=== PATIENT | female | born 1960 | race Caucasian/White ===

== ENCOUNTER 2018-01-30 09:31 | Emergency (ER) | payer BC ==
[~2018-01-30] VITALS: Ht 168.9 cm; Wt 83.6 kg
[~2018-01-30 09:31] MED LIST: ARMO60TA PO; CHEL50TA PO; CYMB60CA PO; IBUP800T23 PO; LORA10TA PO; LYSI1000 PO; OMEGCAP19 PO; PERF25TA PO; PROBCAP10 PO; ROBA750T3 PO; TAB-TAB PO; VITA-13 PO; VITA100017 PO; [UNRECOGNIZED DRUG - OTHER] TD
[2018-01-30 09:37] VITALS: BP 151/92; PULSE 75; RESP 16; TEMP 96.4; O2SAT 97
[2018-01-30] MEDS ORDERED: MULTIVITAMIN (09:57)
[2018-01-30] MEDS ORDERED: SACC1CAP3 PO (09:57)
[2018-01-30] MEDS ORDERED: ROSU1TAB6 PO (09:57)
[2018-01-30] MEDS ORDERED: VITA500C18 PO (09:57)
[2018-01-30] MEDS ORDERED: ACYC400T PO (09:57)
[2018-01-30] MEDS ORDERED: CLAR10CA3 PO (09:57)
[2018-01-30] MEDS ORDERED: VITA100064 PO (09:57)
[2018-01-30] MEDS ORDERED: PERF25TA PO (09:57)
[2018-01-30] MEDS ORDERED: LYSI1000 PO (09:57)
[2018-01-30] MEDS ORDERED: CYMB60CA PO (09:57)
[2018-01-30] MEDS ORDERED: PENI500T PO (09:57)
[2018-01-30] MEDS ORDERED: ARMO60TA PO (09:57)
[2018-01-30] MEDS ORDERED: KETOROLAC TROMETHAMINE 60 MG/2 ML (IM) VIAL IM ONE (10:00)
--- NOTE | 2018-01-30 10:01 | PD ---
HPI Chief Complaint: Injury Time Seen by Provider: 09:45 Travel History International Travel<30 days: No Contact w/Intl Traveler<30days: No Traveled to known affect area: No History of Present Illness HPI The patient's 57 and he complains of left wrist pain and swelling erythema and tenderness. Yesterday she was bowling and slipped backwards onto an outstretched left hand causing pain which has been constant since. Overnight Motrin and ice were somewhat helpful. Pain is moderate throbbing worse with palpation now. No other injury to report aside from a minor scrape overlying the left thumb associated with work. No fever. PFSH Past Medical History Depression: Yes Cancer: No Cardiovascular Problems: Yes High Cholesterol: Yes Diabetes: No Patient Takes Glucophage: No Diminished Hearing: No Endocrine: Yes Gastrointestinal Disorders: Yes GERD: Yes Hypertension: Yes (HISTORY OF HTN BUT WENT ON BIOIDENTICAL HORMONES) Immune Disorder: No Implanted Vascular Access Dvce: No Kidney Stones: Yes Musculoskeletal: Yes (FIBROMYALGIA) Neurologic: Yes Psychiatric: No Reproductive: No Respiratory: No Thyroid Disease: Yes (HYPO THYROID) Tetanus Vaccination: Unknown ?: Not Menopausal: Yes : 5 Para: 5 Tubal Ligation: Yes Past Surgical History Genitourinary Surgery: Yes (LITHOTRYPSY) Gynecologic Surgery: Yes (TUBAL LIGATION) Oral Surgery: Yes (TONSILLECTOMY) Pacemaker: No Tonsillectomy: Yes Other Surgery: Yes Social History Alcohol Use: No Tobacco Use: No (Quit 32 years ago) Substance Use: No Allergies-Medications (Allergen,Severity, Reaction): Coded Allergies: No Known Allergies (Verified Adverse Reaction, Unknown, 01/30/18) Reported Meds & Prescriptions Reported Meds & Active Scripts Active Reported Probiotic (Saccharomyces Boulardii) 250 Mg Cap 250 Mg PO BID Lysine (Lysine HCl) 1,000 Mg Tab 1 Tab PO DAILY Claritin (Loratadine) 10 Mg Cap 10 Mg PO DAILY Vitamin D3 (Cholecalciferol) 1,000 Unit Tab 1,000 Units PO DAILY Perfect Iron (Iron Carbonyl) 25 Mg Iron Tab 50 Mg PO BID Vitamin C Sr (Ascorbic Acid) 500 Mg Caper 500 Mg PO DAILY [Multivitamin] Acyclovir 400 Mg Tab 400 Mg PO BID Rosuvastatin (Rosuvastatin Calcium) 10 Mg Tab 10 Mg PO HS [place] Thyroid (Thyroid) 60 Mg Tab 60 Mg PO DAILY Cymbalta DR (Duloxetine HCl) 60 Mg Capdr 60 Mg PO DAILY Penicillin V Potassium 500 Mg Tab 500 Mg PO Q6H Review of Systems Eyes: No: Blurred Vision HENT: No: Rhinitis Cardiovascular: No: Diaphoresis Respiratory: No: Shortness of Breath Gastrointestinal: No: Abdominal Pain Physical Exam Narrative GENERAL: 57 yo F, WNWD, NAD, AOX3 Vital Signs Date Time Temp Pulse Resp B/P (MAP) Pulse Ox O2 Delivery O2 Flow Rate FiO2 01/30/18 09:37 96.4 75 16 151/92 (111) 97 SKIN: Warm and dry. HEAD: Normocephalic. EYES: No scleral icterus. No injection or drainage. NECK: Supple, trachea midline. No JVD or lymphadenopathy. CARDIOVASCULAR: Regular rate and rhythm without murmurs, gallops, or rubs. RESPIRATORY: Breath sounds equal bilaterally. No accessory muscle use. GASTROINTESTINAL: Abdomen soft, non-tender, nondistended. MUSCULOSKELETAL: No cyanosis, or edema. Minimal ecchymosis overlying the L DRUJ with associated swelling. Palmar aspect L thumb shows a 1cm very superficial laceration/abrasion. BACK: Nontender without obvious deformity. No CVA tenderness. Data Data Last Documented VS Vital Signs Date Time Temp Pulse Resp B/P (MAP) Pulse Ox O2 Delivery O2 Flow Rate FiO2 01/30/18 09:37 96.4 75 16 151/92 (111) 97 Orders Orders Wrist, Complete ([id number]) (01/30/18 ) ^ Splint (01/30/18 09:49) Ketorolac Inj (Toradol Inj) (01/30/18 10:00) Ed Discharge Order (01/30/18 10:53) MDM Medical Decision Making Medical Screen Exam Complete: Yes Emergency Medical Condition: Yes Medical Record Reviewed: Yes Differential Diagnosis Radius fracture, scaphoid fracture, contusion, cellulitis Narrative Course Wrist x-ray shows no acute fracture. There is some concern for scaphoid injury and however minimal may be a thumb spica will be position with plan for follow- up fourth toe. Patient verbalized understanding as we discussed occult scaphoid fracture. Ibuprofen [id number] as needed for pain. Diagnosis Primary Impression: Contusion of wrist, left Qualified Codes: S60.212A - Contusion of left wrist, initial encounter Additional Impression: Fall Qualified Codes: W19.XXXA - Unspecified fall, initial encounter Referrals: Félix Sims MD 2 weeks Stephanie Short MD 2 weeks Med/Other Pt SpecificInfo: No Change to Meds Disposition: 01 DISCHARGE HOME Condition: Stable Jordy Nazario MD Jan 30, 2018 10:01
--- NOTE | 2018-01-30 10:38 | RADRPT ---
EXAM DATE/TIME: 01/30/2018 10:26 [facility] COMPARISON: No previous studies available for comparison. INDICATIONS : Fell bowling, has pain left wrist area MEDICAL HISTORY : None. SURGICAL HISTORY : carpal tunnel surgery bilateral wrist ENCOUNTER: Initial ACUITY: 2 days PAIN SCORE: 9/10 LOCATION: Left wrist FINDINGS: Three view examination of the left wrist demonstrates no soft tissue swelling, dislocation, or fractu re. The carpal bones are in normal alignment. The joint spaces are maintained. Bony mineralization is normal. CONCLUSION: Unremarkable examination of the left wrist. Melchor Gould MD on January 30, 2018 at 10:35 Board Certified Radiologist. This report was verified electronically.
== END 2018-01-30 11:17 | disposition home or self-care (01) ==
LOC: PHED 09:31
DX: S60.212A Contusion of left wrist, initial encounter (principal); F32.9 Major depressive disorder, single episode, unspecified; E78.00 Pure hypercholesterolemia, unspecified; K21.9 Gastro-esophageal reflux disease without esophagitis; I10 Essential (primary) hypertension; M79.7 Fibromyalgia; E03.9 Hypothyroidism, unspecified; W01.0XXA Fall on same level from slipping, tripping and stumbling without subsequent striking against object, initial encounter; Y93.54 Activity, bowling
CPT/HCPCS: 73110; 96372; 99283; J1885